=== PATIENT | male | born 1980 | race African-American/Black ===

== ENCOUNTER 2020-03-03 20:46 | Emergency (ER) | payer OTHER ==
[~2020-03-03] VITALS: Ht 185.4 cm; Wt 107.5 kg
[2020-03-03 23:24] VITALS: BP 146/83
== END 2020-03-03 23:25 | disposition home or self-care (01) ==
LOC: ER 20:47
DX: G44.209 Tension-type headache, unspecified, not intractable (principal)
CPT/HCPCS: 70450